=== PATIENT | female | born 1985 | race Caucasian/White ===

== ENCOUNTER 2019-10-01 10:11 | Observation (INO) | payer BC ==
--- NOTE | 2019-10-01 10:33 | ED ---
HPI Chest Pain - HPI Summary HPI Summary: The patient is a 34 y/o F presenting to [facility] with a chief complaint of sudden onset mid-sternal chest pain onset two days ago. She reports that she was going to bed when the pain began. She describes the pain as a sharp, stabbing pain that has been constant since onset but has decreased in intensity. Currently, the pain is rated 5/10 in severity. She endorses mild shortness of breath, and the pain is aggravated with deep breathing. Lifting her arms does not aggravate the pain. She denies any nausea, vomiting, dizziness, or lightheadedness. LNMP: August 2019. Not currently taking contraception. No PMHx. FHx: enlarged aorta. Nonsmoker, occasional EtOH, no substance use. Medications reviewed. Allergies noted. - History of Current Complaint Chief Complaint: EDChestPainROMI Hx Obtained From: Patient Onset/Duration: Started Days Ago - two, Still Present Timing: Constant, Lasting Days Initial Severity: Severe Current Severity: Moderate Pain Intensity: 5 Pain Scale Used: 0-10 Numeric Chest Pain Location: Mid Sternal Chest Pain Radiates: No Character: Sharp/Stabbing Aggravating Factor(s): Deep Breaths Alleviating Factor(s): Rest Associated Signs and Symptoms: Positive: Chest Pain, Shortness of Breath. Negative: Dizziness, Lightheadedness, Nausea, Vomiting - Allergy/Home Medications Allergies/Adverse Reactions: Allergies Allergy/AdvReac Type Severity Reaction Status Date / Time No Known Allergies Allergy Verified 10/01/19 10:29 Home Medications: Home Medications Multivitamins/Minerals TAB* [Thera M Plus TAB*] 1 tab PO DAILY 10/01/19 [ History Confirmed 10/01/19] PMH/Surg Hx/FS Hx/Imm Hx Endocrine/Hematology History: Denies: Hx Diabetes Cardiovascular History: Denies: Hx Hypercholesterolemia, Hx Hypertension - Cancer History Hx Chemotherapy: No Hx Radiation Therapy: No - Surgical History Surgical History: None Surgery Procedure, Year, and Place: none Infectious Disease History: No Infectious Disease History: Denies: Traveled Outside the [place] in Last 30 Days - Family History Known Family History: Positive: Other - enlarged aorta - Social History Alcohol Use: Occasionally Hx Substance Use: No Substance Use Type: Reports: None Hx Tobacco Use: No Smoking Status (MU): Never Smoked Tobacco Review of Systems Positive: Chest Pain - sharp, stabbing mid-sternal Positive: Shortness Of Breath Negative: Vomiting, Nausea Neurological: Other - Negative: dizziness, lightheadedness All Other Systems Reviewed And Are Negative: Yes Physical Exam - Summary Physical Exam Summary: VITAL SIGNS: Reviewed. GENERAL: Patient is a well-developed and nourished female who is lying comfortable in the stretcher. Patient is not in any acute respiratory distress. HEAD AND FACE: No signs of trauma. No ecchymosis, hematomas or skull depressions. No sinus tenderness. EYES: PERRLA, EOMI x 2, No injected conjunctiva, no nystagmus. EARS: Hearing grossly intact. Ear canals and tympanic membranes are within normal limits. MOUTH: Oropharynx within normal limits. NECK: Supple, trachea is midline, no adenopathy, no JVD, no carotid bruit, no c- spine tenderness, neck with full ROM. CHEST: Symmetric, no tenderness at palpation. LUNGS: Clear to auscultation bilaterally. No wheezing or crackles. CVS: Regular rate and rhythm, S1 and S2 present, no murmurs or gallops appreciated. ABDOMEN: Soft, non-tender. No signs of distention. No rebound, no guarding, and no masses palpated. Bowel sounds are normal. EXTREMITIES: FROM in all major joints, no edema, no cyanosis or clubbing. NEURO: Alert and oriented x 3. No acute neurological deficits. Speech is normal and follows commands. SKIN: Dry and warm. Triage Information Reviewed: Yes Vital Signs On Initial Exam: Initial Vitals Temp Pulse Resp BP Pulse Ox 98.0 F 107 22 151/74 100 10/01/19 10:15 10/01/19 10:15 10/01/19 10:15 10/01/19 10:15 10/01/19 10:15 Vital Signs Reviewed: Yes Procedures - Sedation Patient Received Moderate/Deep Sedation with Procedure: No Diagnostics - Vital Signs Vital Signs Temp Pulse Resp BP Pulse Ox 10/01/19 10:15 98.0 F 107 22 151/74 100 - Laboratory Result Diagrams: 10/01/19 10:35 10/01/19 10:36 Lab Statement: Any lab studies that have been ordered have been reviewed, and results considered in the medical decision making process. - Radiology Chest X-Ray Radiology Interpretation Completed By: Radiologist Summary of Radiographic Findings: Impression: No evidence for acute intrathoracic disease. ED physician has reviewed this report. - EKG 1013 Cardiac Rate: NL - 93 BPM EKG Rhythm: Sinus Rhythm Summary of EKG Findings: EKG at 1013 reveals normal sinus rhythm at [address] depressions in V2, V3, aVF, V4, V5, and V6. No ST elevations. ED physician has reviewed and interpreted this EKG. Re-Evaluation - Re-Evaluation First Eval Re-Evaluation Time: 12:10 Change: Improved Comment: We discussed results and plan for admission as recommended by Dr. Black. Chest Pain Course/Dx - Course Assessment/Plan: This patient is a 35-year-old female who presents to the emergency department with a chief complaint of having chest pain. Patient reports the pain is sharp and increases with deep inspiration. EKG shows ST depression in V2, V3, aVF, V4 to V6. Blood test results without any significant abnormality. I discussed the case with Dr. Black from cardiology, and he recommends admission for further workup for this patient. I discussed my physical exam and test results with Dr. Quezada from the hospitalist services, and she agrees to admit the patient to her services. The patient is hemodynamically stable alert and oriented x3. - Chest Pain Differential Diagnosis/HQI/PQRI: Acute IN, ACS, Angina, CHF, Chest Wall, GI Disease, Lower Respiratory Infection, Pulmonary Edema - Diagnoses Provider Diagnoses: Chest pain, EKG abnormalities - Provider Notifications Discussed Care Of Patient With: Rafael Black - cardiology Time Discussed With Above Provider: 12:00 Instructed by Provider To: Other - I discussed the patient's case and findings, and he recommends admission for full cardiac workup based on the patient's EKG. I spoke with Dr. Quezada, hospitalist, who accepts the patient for admission. Discharge ED - Sign-Out/Discharge Documenting (check all that apply): Patient Departure - Patient is accepted for admission by Dr. Quezada. - Discharge Plan Condition: Good Disposition: ADMITTED TO [facility] - Billing Disposition and Condition Condition: STABLE Disposition: Admitted to [facility] - Attestation Statements Document Initiated by Scribe: Yes Documenting Scribe: Karey Madden Provider For Whom Patriciaibe is Documenting (Include Credential): Dr. Stef Bruno MD Scribe Attestation: IKarey, scribed for Dr. Stef Bruno MD on 10/02/19 at 0720. Scribe Documentation Reviewed: Yes Provider Attestation: The documentation as recorded by the scribe, Karey Madden accurately reflects the service I personally performed and the decisions made by me, Dr. Stef Bruno MD Status of Scribe Document: Viewed
[2019-10-01 10:44] LABS: ABS Eosinophils 0.1 10^3/ul (0-0.6); ABS Lymphocytes 1.8 10^3/ul (1.0-4.8); ABS Monocytes 0.5 10^3/ul (0-0.8); ABS Neutrophils 3.4 10^3/ul (1.5-7.7); Eosinophil % 1.3 %; Hematocrit 41 % (35-47); Hemoglobin 14.1 g/dL (12.0-16.0); Lymphocyte % 31.4 %; Mean Corpuscular HGB Conc 34 g/dL (31-36); Mean Corpuscular Hemoglobin 31 pg (27-31); Mean Corpuscular Volume 90 fL (80-97); Mean Platelet Volume 8.4 fL (7.4-10.4); Platelet Count 244 10^3/uL (150-450); Red Cell Distribution Width 13 % (10-15); White Blood Count 5.8 10^3/uL (3.5-10.8)
[2019-10-01 10:52] LABS: INR 1.02 (0.82-1.09)
[2019-10-01 11:09] LABS: ALT 15 U/L (7-52); AST 19 U/L (13-39); Albumin 4.7 g/dL (3.2-5.2); Albumin/Globulin Ratio 1.7 (1-3); Alkaline Phosphatase 67 U/L (34-104); Anion Gap 7 mmol/L (2-11); Blood Urea Nitrogen 9 mg/dL (6-24); CO2 Carbon Dioxide 24 mmol/L (22-32); Calcium 9.4 mg/dL (8.6-10.3); Chloride 105 mmol/L (101-111); EGFR African American 97.8 (>60); EGFR Non-African American 80.8 (>60); Globulin 2.7 g/dL (2-4); Glucose 103 mg/dL (70-100); Magnesium 1.9 mg/dL (1.9-2.7); Potassium 3.5 mmol/L (3.5-5.0); Sodium 136 mmol/L (135-145); Total Protein 7.4 g/dL (6.4-8.9)
[2019-10-01] MEDS ORDERED: Ketorolac INJ* 30 MG/ML 1 ML VIAL IV PUSH ONE (11:12)
[2019-10-01 11:25] LABS: HCG Pregnancy < 0.60 mIU/mL
[2019-10-01 11:51] LABS: TSH (Thyroid Stimulating Horm) 1.91 mcIU/mL (0.34-5.60)
[2019-10-01] MEDS ORDERED: Acetaminophen TAB* 325 MG PO PRN (12:54)
[2019-10-01 13:21] LABS: C Reactive Protein 3.04 mg/L (<8.01)
[2019-10-01 14:11] LABS: Erythrocyte Sed Rate 6 mm/Hr (0-19)
--- NOTE | 2019-10-01 14:49 | HP ---
CC: Mildred Sims MD * HISTORY AND PHYSICAL: DATE OF ADMISSION: 10/01/19 PRIMARY CARE PROVIDER: Mildred Sims MD. ATTENDING PHYSICIAN: Maria Isabel Bridges MD * (dictated by JENIFER Fraser). CHIEF COMPLAINT: Chest pain. HISTORY OF PRESENT ILLNESS: Ms. London is a 34-year-old female with no significant past medical history who presented to the ER today with complaints of 2 days of pain just left of the mid sternum. She notes that she has had this pain for "years" and describes episodes of feeling as if she is getting "shocked" that last approximately 15 seconds and then disappears and occurs every approximately 2 months. She notes that for the last 2 days she has experienced these chest pains daily approximately 5 times per day. She also has an associated residual aching feeling in that area, which she notes is new. She denies radiation of the pain to the arm or jaw pain, although she does note that she had anterior elbow pain yesterday, which has now resolved. When these episodes occur, the patient states that the pain is worse with deep breathing, but is not reproducible on palpation. She states that these began when she was sitting in bed watching television. She denies association with eating or movement. She denies history of recent travel. She does not use control pills or smoke. She does report occasional palpitations, but believes that these are related to anxiety. Her heart score is 1, low risk with a 0.9% to 1.7% risk of MACE. In the ER, the patient received a full workup, which included laboratory data revealing CBC and CMP which were unremarkable. A troponin was 0.00 x1. TSH was within normal limits. A chest x-ray was obtained and revealed no evidence for acute intrathoracic disease. EKG shows mild ST depression in II, III, V3, V4, V5, V6. The patient was given ketorolac 30 IV in the ER. Hospitalist team was asked to evaluate the patient for admission. PAST MEDICAL HISTORY: No significant past medical history. PAST SURGICAL HISTORY: None. HOME MEDICATIONS: Multivitamin/minerals 1 tab p.o. daily. DRUG ALLERGIES: No known drug allergies. FAMILY HISTORY: The patient's mother has a history of breast cancer, diagnosed at the age of 46. Maternal grandmother had breast cancer and of metastatic cancer. Paternal grandfather had pancreatic cancer. Father has a structural heart abnormality, which the patient believes is dilated aorta. No family history of heart disease, CVA, diabetes mellitus. SOCIAL HISTORY: The patient does not use tobacco. She quit 2 to 3 years ago. Prior to that, she smoked for approximately 10 years, 1 pack per day. She uses alcohol daily 1 to 2 glasses of wine per day. She does not use any illicit drugs. 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 In the event that she is unable to make her own medical decisions, she has appointed her father and mother, Luis Miguel and Cary London, to be her surrogate decision makers. REVIEW OF SYSTEMS: A 14-point review of systems has been performed and all the pertinent positives and negatives are in the HPI. All other systems are negative. PHYSICAL EXAMINATION GENERAL: Ms. London is a well-developed, well-nourished, healthy-appearing young white woman who is sitting up in bed. She appears to be in no acute distress. She appears comfortable. She is breathing comfortably. She is appropriate, cooperative. VITAL SIGNS: Temperature 98.0 temporal, heart rate 107, respiratory rate 22, oxygen saturation 100% on room air, blood pressure 151/74. HEENT: PERRL. EOMI. Nonicteric sclerae. Hearing is grossly intact. Oral mucous membranes are moist. There are no lesions. Unable to visualize posterior pharynx. Tongue is at midline. Palate elevates symmetrically. PULMONARY: Symmetrical chest expansion without use of accessory muscles. Clear to auscultation bilaterally without rhonchi, wheeze, rales. No digital clubbing or cyanosis. CARDIOVASCULAR: Regular rate and rhythm with S1, S2 present without murmurs, rubs, clicks, or gallops. Chest pain is nonreproducible with palpation or deep breathing. There is no JVD. There is no peripheral edema. Radial and pedal pulses are palpable. ABDOMEN: Flat. Bowel sounds in all quadrants. Soft, nontender to palpation. MUSCULOSKELETAL: Full range of motion without pain or deformity. NEURO: The patient is awake. She is alert and oriented x3 with cranial nerves grossly intact. She is able to move all of her extremities with a motor strength of 5/5 bilaterally. Motor strength equal. DIAGNOSTIC STUDIES/LAB DATA: CBC within normal limits. CMP within normal limits. TSH 1.91. Troponin 0.00. 1. Chest x-ray, impression: No evidence for acute intrathoracic disease. 2. EKG: Minimal ST depression in leads II, III, aVF, V3 through V6. ASSESSMENT AND PLAN: Ms. London is a 34-year-old female with no significant past medical history who presented to the ER today with complaints of intermittent chest pain for the last approximately 2 days with a constant ache. The patient will be admitted to observation for: 1. Chest pain. The patient describes 2 days of aching in the chest just to the left and lateral of the mid sternum. The patient describes a shocking period at times, 5 to 6 times per day. When this occurs, the pain is worsened with deep breathing, but she does not believe that the pain is reproducible with palpation. Differentials include pulmonary embolism, pericarditis, and less likely acute coronary syndrome. We will add on ESR, CRP, D-dimer to previously drawn labs. We will continue to trend troponins. A repeat EKG will be ordered for the morning. An echocardiogram will be ordered to assess the pericardium and to assess for wall motion abnormalities. 2. DVT prophylaxis. According to DVT Risk Assessment, the patient scores 1, placing her at low risk. She will be placed on SCDs only. 3. Code status. Full code. TIME SPENT: Approximately 55 minutes were spent on this admission, greater than half that time was spent [id number] with the patient obtaining history, performing physical, and reviewing the plan of care. The case has been reviewed with my attending, Dr. Bridges, who is in agreement with the plan of care. EMELI CAMPOS, JENIFER [id number]/[facility] #: [id number] HUNTER
[2019-10-01 15:23] VITALS: BP 124/71
--- NOTE | 2019-10-01 15:47 | ECHO ---
*[facility]* [place] [address] Fax #: [phone] Transthoracic Echocardiogram Patient: Ira Segura : 1985 Study Date: 10/01/2019 Age: 34 Gender: F HR: 80 bpm Height: 67 in /170.2 cm BSA: 1.67 m^2 Weight: 126.7 lb /57.6 kg BMI: 19.9 kg/m^2 *Contact Center Engineer: * Jaquelin Mcdonald [facility] *Referring Physician: * Maria Isabel JaegerReading Physician: * Rafael Black MD Indications: Chest Pain, unspecified. History: Previously healthy. Conclusions Summary: - Left ventricle: Systolic function is normal. The estimated ejection fraction is 55-60%. Wall motion is normal; there are no regional wall motion abnormalities. - Right ventricle: Systolic function is normal. - Mitral valve: There is trace regurgitation. - Aortic valve: There is no evidence of stenosis. - Tricuspid valve: There is trace regurgitation. - Pericardium, extracardiac: There is no significant pericardial effusion. - Pulmonary arteries: Systolic pressure is within the normal range. - Study data: No prior study is available for comparison. Study data: Transthoracic echocardiogram. Procedure: Transthoracic echocardiography was performed. Image quality was fair. Complete 2D, spectral Doppler, and color flow Doppler. Location: Emergency department. Patient status: Outpatient. Patient room number: 8. No prior study is available for comparison. Rhythm: Normal sinus rhythm. Findings Left ventricle: The cavity size is normal. Wall thickness is normal. Systolic function is normal. The estimated ejection fraction is 55-60%. Wall motion is normal; there are no regional wall motion abnormalities. Left ventricular diastolic function parameters are normal. Right ventricle: The cavity size is normal. Systolic function is normal. Left atrium: The atrium is normal in size. Right atrium: The atrium is normal in size. Mitral valve: The leaflets are normal thickness. There is no evidence of stenosis. There is trace regurgitation. Aortic valve: The valve is probably trileaflet. The leaflets are normal thickness. There is no evidence of stenosis. There is no significant regurgitation. Tricuspid valve: The leaflets are normal thickness. There is no evidence of stenosis. There is trace regurgitation. Pulmonic valve: The leaflets are normal thickness. There is no evidence of stenosis. There is trace regurgitation. Aorta: The aortic root appears normal. The aortic arch appears normal. Pericardium: There is no significant pericardial effusion. Pulmonary arteries: The main pulmonary artery is normal-sized. Systolic pressure is within the normal range. Systemic veins: Inferior vena cava: The vessel is dilated. There is (>= 50%) respiratory change in the IVC dimension. Measurements Left ventricle Value Ref Mitral valve Value Ref ISAIAH, LAX 4.0 cm 3.8 - 5.2 Peak E 1.05 m/sec ----- ESD, LAX 3.4 cm 2.2 - 3.5 Peak A 0.51 m/sec ----- FS, LAX (L) 16 % 27 - 45 Decel time 174 ms ----- PW, ED, LAX 0.7 cm 0.6 - 0.9 Peak grad, D 4.4 mm Hg ----- EF (L) 34 % 54 - 74 Peak E/A ratio 2.1 ----- E', lat barb, TDI 19.7 cm/sec >=10.0 E/e', lat barb, 5 Pulmonic valve Value Ref TDI Peak v, S 0.95 m/sec ----- E', med barb, TDI 11.8 cm/sec >=7.0 Peak grad, S 4.0 mm Hg --- -- E/e', med barb, 9 TDI Tricuspid valve Value Ref E', avg, TDI 15.8 cm/sec TR peak v 2 m/sec <=2 .8 E/e', avg, TDI 7 <=14 Peak RV-RA grad, S 16 mm Hg --- -- LVOT Value Ref Aortic root Value Ref Peak jonas, S 1.26 m/sec Root diam 2.7 cm <3.3 Peak grad, S 6 mm Hg Mean grad, S 3 mm Hg Ascending aorta Value Ref AAo AP diam, S 2.6 cm ----- Ventricular septum Value Ref IVS, ED 0.8 cm 0.6 - 0.9 Aortic arch Value Ref Arch diam 2.7 cm ----- Right ventricle Value Ref ISAIAH, LAX 2.2 cm Decending aorta Value Ref ISAIAH minor ax, A4C 2.0 cm 1.9 - 3.5 Janelle peak jonas 1.11 m/sec ----- mid Pressure, S 19 mm Hg Pulmonary artery Value Ref Pressure, S 15.0 mm Hg ----- Left atrium Value Ref AP dim, ES 2.80 cm 2.70 - Inferior vena cava Value Ref 3.80 Diam 2.2 cm ----- ML dim, A4C 3.3 cm SI dim, A4C 5.1 cm Pulmonary veins Value Ref Vol/bsa, ES, A/L 23 ml/m^2 16 - 34 Peak v, S 0.77 m/sec ----- Peak v, D 0.81 m/sec ----- Right atrium Value Ref Peak S/D ratio 1 ----- SI dim, ES 4.0 cm 3.4 - 5.3 A rev duration 79 ms ----- ML dim, ES, A4C 3.2 cm 2.6 - 4.4 SI dim, ES, A4C 4.0 cm 3.4 - 5.3 Aortic valve Value Ref Barb diam, ED 2.1 cm Peak v, S 1.5 m/sec VTI, S 29.2 cm Mean grad, S 5.0 mm Hg Peak grad, S 9.0 mm Hg Legend: (L) and (H) elias values outside specified reference range. Prepared and electronically signed by Rafael Black MD 10/01/2019 15:46
--- NOTE | 2019-10-01 21:16 | DS ---
CC: Dr. Mildred Sims * DISCHARGE SUMMARY: DATE OF ADMISSION: 10/01/19 DATE OF DISCHARGE: 10/01/19 PRIMARY CARE PROVIDER: Dr. Mildred Sims ATTENDING PHYSICIAN: Maria Isabel Bridges MD * (dictated by JENIFER Fraser) PRIMARY DIAGNOSIS: Atypical chest pain. SECONDARY DIAGNOSIS: No significant past medical history. STUDIES WHILE IN THE HOSPITAL: 1. Chest x-ray. Impression: No evidence for acute intrathoracic disease. 2. Transthoracic echocardiogram. Summary: LV systolic function normal, estimated EF is 55% to 60%, wall motion normal. No regional wall motion abnormalities. RV systolic function normal. Trace MR, no evidence of . Trace TR, there is no significant pericardial effusion. Pulmonary artery systolic pressure within normal range. DISCHARGE MEDICATIONS: Home medications: 1. Multivitamin 1 tab p.o. daily. New home medications: 1. Acetaminophen 1000 mg p.o. q.6 hours p.r.n. pain. HISTORY OF PRESENT ILLNESS/HOSPITAL COURSE: Ms. London is a 34-year-old female with no significant past medical history, who presented to the ER today with complaints of 2 days of chest pain to the left lateral to the mid sternum described as a shocking pain. She states that she has had this for years, but that it has increased in frequency over the last 2 days. For full and complete details, please see the history and physical dictated by JENIFER Fraser, but in short, the patient presents with the above symptoms. Cardiology is consulted and recommends echocardiogram due to concern for pericarditis. The patient was admitted and ESR and CRP were obtained and both were negative. Troponins were negative x2 at 0.00. A D-dimer was 291. Being that D-dimer was less than 500, it was considered negative and a CTA was not pursued. The only PERC criteria the patient met was 1 recorded episode of tachycardia at a rate of 107. She denies shortness of breath, recent travel, tobacco use, use of oral contraceptives, calf pain. Due to the pleuritic nature of the patient's chest pain, there was concern for pericarditis. An echo was obtained and revealed no significant pericardial effusion. Dr. Black was consulted and recommends discharge as there is no further workup indicated. Currently the patient denies chest pain, although she has had pain recently. She describes the pain as intermittent "shocks" that are worsened with inspiration. REVIEW OF SYSTEMS: A 14-point review of systems was performed and all the pertinent positives and negatives are in the HPI. All other systems are negative. PHYSICAL EXAMINATION: Please see history and physical dictated by JENIFER Fraser earlier today for physical exam. Vital Signs: Temperature 98.6 , oral, heart rate 79, respiratory rate 19, oxygen saturation 99% on room air, blood pressure 124/71. Ms. London is stable for discharge to home. ACTIVITY: As tolerated. DIET: Resume home diet. CONDITION: Good. MEDICATIONS: 1. Continue home medications. 2. Consider Tylenol p.r.n. pain. EDUCATIONS: 1. Follow up with primary care provider in 4 to 7 days. Discussed recent hospitalization, chest pain. 2. Return to the ER or nearest hospital if you experience any return or worsening of symptoms, shortness of breath, chest pain or discomfort, palpitations, dizziness, lightheadedness, loss of consciousness, high fever, chills, night sweats or any other worrisome signs or symptoms. This is a summarized report of a complex medical history and hospital stay. For further details, please see the entire medical record. TIME SPENT: Approximately 20 minutes was spent on this discharge, greater than half of that time was spent [id number] with the patient and her parents discussing discharge plans and instructions. JENIFER MULLIGAN [id number]/[facility] #: [id number] [facility]
--- OUTSIDE RECORDS SUMMARY | 2019-10-02 16:15 | XMS REPORT | Continuity of Care Document ---
:1985 External Reference #:[id number] Author Name Mildred Sims M.D. Address [address] [place] [address] Care Team Providers Name Role Phone Mildred Sims M.D. 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 Onset: 08/30/2019 Anemia Mildred Sims M.D. Onset: 08/30/2019 Anxiety state Mildred Sims M.D. Onset: 08/30/2019 Social History Type Date Description Comments Sex Unknown Tobacco Use Start: Unknown End: Former Cigarette Smoker 20-30 yo up to 1ppd Smoking Status Reviewed: 08/30/19 Former Cigarette Smoker 20-30 yo up to 1ppd ETOH Use Consumes 5 glasses of wine per week Tobacco Use Start: Unknown End: Patient is a former Unknown smoker Exercise Exercises rarely Type/Frequency Allergies, Adverse Reactions, Alerts Description No Known Drug Allergies Medications Description No Active Medications Immunizations CPT Code Status Date Vaccine Lot # [id number] Given 08/30/2019 Tdap Tetanus, W Pertussis [id number] Vital Signs Date Vital Result Comment 08/30/2019 9:43am BP Systolic 100 mmHg BP Diastolic 70 mmHg Heart Rate 74 /min Body Temperature 98.8 F Respiratory Rate 12 /min Height 67 inches 5'7" measured Weight 163.00 lb BMI (Body Mass Index) 25.5 kg/m2 Results Description No Information Available Procedures Description No Information Available Medical Devices Description No Information Available Encounters Description No Information Available Assessments Date Code Description Provider 08/30/2019 Z00.00 Encounter for general adult medical examination Mildred Sims M.D. without abnormal findings 08/30/2019 F41.9 Anxiety disorder, unspecified Mildred Sims M.D. 08/30/2019 D64.9 Anemia, unspecified Mildred Sims M.D. 08/30/2019 Z80.3 Family history of malignant neoplasm of breast Mildred Sims M.D. 08/30/2019 Z12.31 Encounter for screening mammogram for malignant Mildred Sims M.D. neoplasm of breast 08/30/2019 Z23 Encounter for immunization Mildred Sims M.D. Plan of Treatment Future Appointment(s):09/12/2019 8:30 am - Mildred Sims M.D. at [id number] - Mildred Sims M.D.Z00.00 Encounter for general adult medical examination without abnormal findingsNew Labs:CBC Electronic-[facility], Ordered: 08/30/19Comp Metabolic-[facility], Ordered: 08/30/19Lipid Panel- [facility], Ordered: 08/30/19Ua - Non Micro ([facility]), Ordered: 08/30/19TSH ( [facility]), Ordered: 08/30/19Comments:Encourage an active and healthy lifestyle with proper eating habits including fruits, vegetables, 6-8 glasses of water a day and monitoring portion size. Recommend 30 minutes of daily physical activityincluding walking, aerobic exercise, sports, yoga or dance. Any activity is better than no activity.Recommend routine eye and dental exams. Next physical is due in 1-2 years.Follow up:fasting labs 1 yearF41.9 Anxiety disorder, unspecifiedComments:given list of local providers ; call if symptoms worsen discussed online therapy [facility], mindfulness and meditation apps ( [employer] timer, [employer] mediation)D64.9 Anemia, unspecifiedNew Labs:CBC Electronic- [facility], Ordered: 08/30/19Iron, Total ([facility]), Ordered: 08/30/19Ferritin ( [facility]), Ordered: 08/30/19Comments:check labsZ80.3 Family history of malignant neoplasm of breastComments:refer for mammogram given early breast cancer family [id number] Encounter for screening mammogram for malignant neoplasm of breastNew Xrays:Mammography Screening, Bilateral; 2-View Each Breast , Ordered: 08/30/19Comments:refer for [id number] Encounter for immunizationAllNew Medication:No Active Medications -Comments:Medication Management Patient Understands medications she's taking? Yes No Are there Barriers to Adherence? Yes No Has the patient been asked about herbal supplements and therapies, and OTC meds? Yes No Functional Status Description No Information Available Mental Status Description No Information Available Referrals Description No Information Available
== END 2019-10-01 17:01 | disposition home or self-care (01) ==
LOC: ED 10:11 → MEDTELE 12:52
PROVIDERS: ADMIT Internal Medicine; ATTEND Internal Medicine
DX: R07.89 Other chest pain (principal); R06.02 Shortness of breath; R94.31 Abnormal electrocardiogram [ECG] [EKG]; Z79.899 Other long term (current) drug therapy
CPT/HCPCS: 36415; 71045; 80053; 83735; 84443; 84484; 84702; 85025; 85379; 85610; 85652; 86140; 93005; 93306; 99283; G0378; J1885

== ENCOUNTER 2021-11-28 11:13 | Inpatient (IN) ==
[2021-11-28] MEDS ORDERED: Buffered Lidocaine 1% SYRIN 1 ml INTRADERM ONE (11:52)
[2021-11-28] MEDS ORDERED: Lactated Ringers 1000 ml BAG 1,000 ML IV ONE ×2 (11:52→13:34)
[2021-11-28 12:15] LABS: Rapid COVID-19 Molecular Undetected (Undetected)
[2021-11-28 12:27] LABS: ABS Lymphocytes 1.3 10^3/ul (1.0-4.8); ABS Monocytes 0.7 10^3/ul (0-0.8); ABS Neutrophils 9.7 10^3/ul (1.5-7.7); Eosinophil % 0.1 %; Hematocrit 34 % (35-47); Hemoglobin 11.7 g/dL (12.0-16.0); Mean Corpuscular HGB Conc 34 g/dL (31-36); Mean Corpuscular Hemoglobin 30 pg (27-31); Mean Corpuscular Volume 88 fL (80-97); Mean Platelet Volume 9.4 fL (7.4-10.4); Nucleated Red Blood Cells % 0.1; Platelet Count 272 10^3/uL (150-450); Red Cell Distribution Width 13 % (10-15); White Blood Count 11.8 10^3/uL (3.5-10.8)
[2021-11-28] MEDS ORDERED: OBEPIDURAL 250 ML EPIDURAL ONE (12:40)
[2021-11-28 12:51] LABS: Urine Benzodiazepine Screen None Detected (None Detect); Urine Cannabinoids Screen None Detected (None Detect); Urine Opiates Screen None Detected (None Detect)
[2021-11-28] MEDS: Lactated Ringers 1000 ml BAG 1,000 ML IV SCH ×2 (13:21→14:40)
[2021-11-28] MEDS ORDERED: EPHEDrine (Pressors) 50 MG/ML VIAL IV PUSH PRN ×2 (13:34)
[2021-11-28] MEDS ORDERED: Sodium Citrate/Citric Acid LIQ 15 ML UDC PO PRN (13:34)
[2021-11-28] MEDS ORDERED: Phenylephrine 40 mcg/mL 10mL (400mcg) SYRINGE IV PUSH PRN ×2 (13:34)
[2021-11-28] MEDS ORDERED: Lactated Ringers 1000 ml BAG 1,000 ML IV SCH (14:00)
[2021-11-28] MEDS ORDERED: OBEPIDURAL 250 ML EPIDURAL SCH (14:00)
[2021-11-28 14:26] LABS: Urine Appearance Cloudy; Urine Bilirubin Negative (Negative); Urine Blood 1+ (Negative); Urine Color Yellow; Urine Glucose Negative (Negative); Urine Ketones Trace (Negative); Urine Nitrite Negative (Negative); Urine Protein Negative (Negative); Urine Specific Gravity 1.014 (1.002-1.030); Urine Urobilinogen Negative (Negative)
[2021-11-28 14:35] LABS: Urine Bacteria Absent (Absent); Urine Red Blood Cell 3+(>10/hpf) (Absent); Urine White Blood Cell Trace(0-5/hpf) (Absent)
[2021-11-28] MEDS ORDERED: Oxytocin in LR 20 UNITS/1,000 ML BAG IVPB ONE (18:36)
[2021-11-28] MEDS ORDERED: Oxytocin in LR 20 UNITS/1,000 ML BAG IVPB SCH ×2 (20:00→22:00)
[2021-11-28] MEDS ORDERED: Glycerin ADULT 2.4 gm SUPP PR PRN (21:50)
[2021-11-28] MEDS ORDERED: Witch Hazel PAD JAR TOPICAL PRN (21:50)
[2021-11-28] MEDS ORDERED: Dibucaine 1% OINT 28.35 GM TUBE PR PRN (21:50)
[2021-11-29] MEDS ORDERED: Lidocaine 1% VIAL 10 MG/ML VIAL ONE (01:43)
[2021-11-29] MEDS ORDERED: RHO D Immune Globulin (HUMAN) 300 MCG = 1,500 I.U. INJ IM PRN (06:00)
[2021-11-29 06:57] LABS: ABS Basophils 0.1 10^3/ul (0-0.2); ABS Lymphocytes 1.3 10^3/ul (1.0-4.8); ABS Monocytes 1.2 10^3/ul (0-0.8); ABS Neutrophils 10.1 10^3/ul (1.5-7.7); Eosinophil % 0.1 %; Hematocrit 27 % (35-47); Hemoglobin 9.3 g/dL (12.0-16.0); Lymphocyte % 10.3 %; Mean Corpuscular HGB Conc 35 g/dL (31-36); Mean Corpuscular Hemoglobin 31 pg (27-31); Mean Corpuscular Volume 88 fL (80-97); Mean Platelet Volume 8.9 fL (7.4-10.4); Platelet Count 236 10^3/uL (150-450); Red Blood Count 3.05 10^6 /uL (3.70-4.87); Red Cell Distribution Width 13 % (10-15); White Blood Count 12.7 10^3/uL (3.5-10.8)
[2021-11-30 09:47] VITALS: BP 122/75
== END 2021-11-30 13:00 | disposition home or self-care (01) | DRG 560 ==
LOC: MCHOBOUT 11:13 → MCHOB 11:53
PROVIDERS: ADMIT Midwife; ATTEND Midwife

== ENCOUNTER 2024-11-13 09:39 | Inpatient (IN) ==
[2024-11-13 12:08] LABS: ABS Eosinophils 0.1 10^3/uL (0.0-0.5); ABS Lymphocytes 1.4 10^3/uL (1.0-4.8); ABS Monocytes 0.8 10^3/uL (0.0-0.9); ABS Neutrophils 7.2 10^3/uL (1.5-7.6); Eosinophil % 0.6 %; Hematocrit 37.3 % (35-45); Hemoglobin 12.8 g/dL (11.5-14.3); Lymphocyte % 14.5 %; Mean Corpuscular Hemoglobin 30.7 pg (27-33); Mean Corpuscular Hgb Conc 34.4 g/dL (31-36); Mean Corpuscular Volume 89.1 fL (80-97); Mean Platelet Volume 8.9 fL (7.5-11.2); Platelet Count 237 10^3/uL (150-450); Red Blood Count 4.19 10^6/uL (3.63-4.92); Red Cell Distribution Width 13.7 % (12-17); White Blood Count 9.4 10^3/uL (3.8-11.8)
[2024-11-13 12:29] LABS: Urine Benzodiazepine Screen None Detected (None Detect); Urine Cannabinoids Screen None Detected (None Detect); Urine Opiates Screen None Detected (None Detect)
[2024-11-13] MEDS: Lactated Ringers 1000 ml BAG 1,000 ML IV ONE ×2 (13:01→14:02)
[2024-11-13] MEDS: OBEPIDURAL (200 ML) 200 ML EPIDURAL ONE (13:43)
[2024-11-13] MEDS: Lidocaine 1.5% EPI 1:200,000 30 ML SDV ONE (13:44)
[2024-11-13] MEDS ORDERED: Sodium Citrate/Citric Acid LIQ 15 ML UDC PO PRN (13:58)
[2024-11-13] MEDS ORDERED: Phenylephrine 40 mcg/mL 10mL (400mcg) SYRINGE IV PUSH PRN ×2 (13:58)
[2024-11-13] MEDS: Phenylephrine 40 mcg/mL 10mL (400mcg) SYRINGE ONE (14:20)
[2024-11-13] MEDS: OBEPIDURAL (200 ML) 200 ML EPIDURAL SCH (14:20)
[2024-11-13 14:28] LABS: Urine Appearance Clear; Urine Bilirubin Negative (Negative); Urine Blood Negative (Negative); Urine Color Colorless; Urine Glucose Negative (Negative); Urine Ketones Negative (Negative); Urine Nitrite Negative (Negative); Urine Protein Negative (Negative); Urine Specific Gravity 1.005 (1.002-1.030); Urine Urobilinogen Negative (Negative); Urine pH 7.5 (5.0-8.0)
[2024-11-13] MEDS: Oxytocin in LR 20,000 MILLI.UNIT/1,000 ML BAG IV SCH (17:28)
[2024-11-13] MEDS: Lactated Ringers 1000 ml BAG 1,000 ML IV SCH (17:48)
[2024-11-13] MEDS: Lidocaine 1% VIAL 10 MG/ML 30 ML VIAL ONE (17:48)
[2024-11-13] MEDS: Lidocaine 1% VIAL 10 MG/ML 30 ML VIAL INJ PRN (18:27)
[2024-11-13] MEDS: Oxytocin in LR 20,000 MILLI.UNIT/1,000 ML BAG IV ONE (18:29)
[2024-11-13] MEDS ORDERED: Lactated Ringers 1000 ml BAG 1,000 ML IV SCH (19:00)
[2024-11-13] MEDS: Witch Hazel PAD JAR TOPICAL PRN (19:36)
[2024-11-13] MEDS: Dibucaine 1% OINT 28.35 GM TUBE PR PRN (19:36)
[2024-11-14 08:16] LABS: ABS Eosinophils 0.1 10^3/uL (0.0-0.5); ABS Lymphocytes 1.8 10^3/uL (1.0-4.8); ABS Monocytes 1.1 10^3/uL (0.0-0.9); ABS Neutrophils 7.7 10^3/uL (1.5-7.6); Eosinophil % 0.8 %; Hematocrit 32.6 % (35-45); Hemoglobin 11.3 g/dL (11.5-14.3); Lymphocyte % 17.1 %; Mean Corpuscular Hemoglobin 31.2 pg (27-33); Mean Corpuscular Hgb Conc 34.7 g/dL (31-36); Mean Corpuscular Volume 89.8 fL (80-97); Mean Platelet Volume 9.1 fL (7.5-11.2); Platelet Count 180 10^3/uL (150-450); Red Blood Count 3.63 10^6/uL (3.63-4.92); Red Cell Distribution Width 13.6 % (12-17); White Blood Count 10.7 10^3/uL (3.8-11.8)
[2024-11-14 12:42] VITALS: BP 136/72
[2024-11-14] MEDS: RHO D Immune Globulin (HUMAN) 300 MCG = 1,500 I.U. INJ IM PRN (18:25)
== END 2024-11-14 18:49 | disposition home or self-care (01) | DRG 560 ==
LOC: MCHOBOUT 09:39 → MCHOB 11:30
PROVIDERS: ADMIT Midwife